=== PATIENT | male | born 1990 | race Caucasian/White ===

== ENCOUNTER 2023-07-15 09:44 | Emergency (ER) | payer SELFPAY ==
[~2023-07-15] VITALS: Ht 165.1 cm; Wt 72.6 kg
[2023-07-15 10:04] VITALS: BP 116/77; PULSE 95; RESP 20; TEMP 97.8; O2SAT 99
== END 2023-07-15 10:22 ==
LOC: MED 09:44
DX: V49.88XA Car occupant (driver) (passenger) injured in other specified transport accidents, initial encounter; Y93.89 Activity, other specified; Y92.89 Other specified places as the place of occurrence of the external cause; Y99.8 Other external cause status
CPT/HCPCS: 99283